=== PATIENT | female | born 1940 | race Caucasian/White ===

== ENCOUNTER 2016-12-26 03:04 | Inpatient (IN) | payer MEDICARE, OTHER ==
[~2016-12-26] VITALS: Ht 154.9 cm; Wt 73.9 kg
[2016-12-26] MEDS ORDERED: FURO20TA4 PO (03:24)
[2016-12-26] MEDS ORDERED: LISI40TA4 PO (03:24)
[2016-12-26] MEDS ORDERED: MESA1.2T PO (03:24)
[2016-12-26] MEDS ORDERED: ATEN50TA PO (03:24)
[2016-12-26] MEDS ORDERED: ALLO300T2 PO (03:24)
[2016-12-26] MEDS ORDERED: PARO40TA4 PO (03:24)
[2016-12-26] MEDS ORDERED: PANT40TA4 PO (03:24)
[2016-12-26] MEDS ORDERED: GABA-534 PO (03:24)
[2016-12-26] MEDS ORDERED: MONT10TA25 PO (03:24)
[2016-12-26] MEDS ORDERED: PRAV40TA3 PO (03:24)
[2016-12-26] MEDS ORDERED: MULT1TAB73 PO (03:24)
[2016-12-26] MEDS ORDERED: BUDE9TAB PO (03:24)
--- NOTE | 2016-12-26 03:28 | NUR ---
MEDICAL CLEARED BY DR LEGGETT
--- NOTE | 2016-12-26 03:46 | NUR ---
TRANSFERED TO [facility] VIA JUICE
[2016-12-26] MEDS ORDERED: TEMAZEPAM 7.5 MG CAPSULE PO PRN (04:00)
[2016-12-26] MEDS ORDERED: MAGNESIUM HYDROXIDE 30 ML LIQUID UDC PO PRN (04:00)
[2016-12-26] MEDS ORDERED: LORAZEPAM 0.5 MG TABLET PO PRN (04:00)
[2016-12-26] MEDS ORDERED: MAG HYDROX/AL HYDROX/SIMETH 30 ML LIQUID UDC PO PRN (04:00)
[2016-12-26 04:48] VITALS: BP 134/80
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
[2016-12-26 05:51] LABS: *BILIRUBIN,URIN NEGATIVE (NEGATIVE); *BLOOD, URINE NEGATIVE (NEGATIVE); *CLARITY,URINE CLEAR (CLEAR); *COLOR,URINE YELLOW (YELLOW); *KETONES,URINE NEGATIVE (NEGATIVE); *PROTEIN,URINE NEGATIVE (NEGATIVE); *UROBILINOGEN,URINE 0.2 E.U./dl (NORMAL); LEUKOCYTE ESTERASE ,URINE NEGATIVE (NEGATIVE); NITRITE, URINE NEGATIVE (NEGATIVE); PH,URINE 5.5 (5.0-8.0); UGLUCOSE NEGATIVE (NEGATIVE)
[2016-12-26 07:30] VITALS: BP 133/79
[2016-12-26] MEDS: ACETAMINOPHEN 325 MG TABLET PO PRN (09:39)
[2016-12-26 10:22] LABS: BACTERIA,URINE NONE SEEN /HPF (NONE SEEN); RBC,URINE 0-3 /HPF (0-3); SQUAMOUS EPITHELIAL CELL,UR FEW /HPF (NONE SEEN); WBC,URINE 0-3 /HPF (0-3)
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
[2016-12-26] MEDS: QUETIAPINE FUMARATE 25 MG TABLET PO SCH ×2 (11:14→16:36)
[2016-12-26] MEDS: PAROXETINE HCL 20 MG TABLET PO SCH (11:14)
--- NOTE | 2016-12-26 13:29 | NUR ---
Initial discharge instructions: The patient resides at her daughter's home [[address] [place], [place]; ]. Pt's daughter stated that she does not want the patient to return home upon discharge. She stated that she will be going out of town (to [facility] [place]) with her family and will not be home until 12/31/16. SW will speak with patient, family, and MD regarding most appropriate discharge plan. SS will form a safe and proper discharge plan.
[2016-12-26 15:42] VITALS: BP 110/51
[2016-12-26 16:02] LABS: BASOPHILS # (AUTO) 0.1 K/uL (0.0-8.0); BASOPHILS % (AUTO) 0.7 % (0.0-2.0); EOSINOPHILS % (AUTO) 0.1 % (0.0-7.0); HEMOGLOBIN 11.7 G/DL (12.0-16.0); LYMPHOCYTES # (AUTO) 0.5 K/UL (0.8-4.8); LYMPHOCYTES % (AUTO) 4.8 % (20.5-51.5); MEAN CORPUSCULAR HEMOGLOBIN 30.6 UUG (27.0-31.0); MEAN CORPUSCULAR HGB CONC 33 g/dL (32.0-37.0); MEAN CORPUSCULAR VOLUME 93.8 FL (81.0-99.0); MONOCYTES # (AUTO) 0.5 K/UL (0.1-1.30); MONOCYTES % (AUTO) 4.6 % (0.0-11.0); NEUTROPHILS # (AUTO) 9.4 K/UL (1.8-8.9); NEUTROPHILS % (AUTO) 89.8 % (38.5-71.5); PLATELET COUNT (AUTO) 220 K/UL (150-450); RED BLOOD CELL COUNT(AUTO) 3.83 MIL/UL (4.2-5.4); WHITE BLOOD COUNT (AUTO) 10.5 K/UL (4.0-11.2)
[2016-12-26 16:15] LABS: ALANINE AMINOTRANSFERASE 25 U/L (14-59); ALKALINE PHOSPHATASE 61 U/L (50-136); ASPARTATE AMINOTRANSFERASE 13 U/L (15-37); BILIRUBIN,TOTAL 0.3 mg/dL (0.2-1.0); CARBON DIOXIDE 27 mmol/L (21-32); CHLORIDE 109 mmol/L (98-107); CREATININE 1.6 mg/dL (0.6-1.3); GLUCOSE 148 mg/dL (74-106); MAGNESIUM 2.1 mg/dL (1.8-2.4); TOTAL PROTEIN, SERUM 5.5 g/dL (6.4-8.2); UREA NITROGEN, BLOOD 62 mg/dL (7-18)
[2016-12-26] MEDS: GABAPENTIN 300 MG CAPSULE PO SCH (16:35)
[2016-12-26] MEDS: FUROSEMIDE 20 MG TABLET PO SCH (16:36)
[2016-12-26] MEDS: PANTOPRAZOLE SODIUM 40 MG TABLET.DR PO SCH (16:36)
[2016-12-26] MEDS: MONTELUKAST SODIUM 10 MG TABLET PO SCH (20:14)
[2016-12-26] MEDS: ATORVASTATIN 10 MG TABLET PO SCH (20:14)
[2016-12-26] MEDS: ATENOLOL 50 MG TABLET PO SCH (20:15)
[2016-12-26 20:36] VITALS: BP 118/61
[2016-12-27 07:30] VITALS: BP 143/64
[2016-12-27] MEDS: GABAPENTIN 300 MG CAPSULE PO SCH ×3 (08:41→17:03)
[2016-12-27] MEDS: FUROSEMIDE 20 MG TABLET PO SCH ×2 (08:41→17:03)
[2016-12-27] MEDS: ALLOPURINOL 300 MG TABLET PO SCH (08:41)
[2016-12-27] MEDS: MULTIVITAMINS,THERAPEUTIC TABLET PO SCH (08:41)
[2016-12-27] MEDS: ATENOLOL 50 MG TABLET PO SCH ×2 (08:42→20:26)
[2016-12-27] MEDS: LISINOPRIL 20 MG TABLET PO SCH (08:42)
[2016-12-27] MEDS: PAROXETINE HCL 20 MG TABLET PO SCH (08:42)
[2016-12-27] MEDS: PANTOPRAZOLE SODIUM 40 MG TABLET.DR PO SCH ×2 (08:42→17:03)
[2016-12-27] MEDS: LIALDA 1.2 GM PO SCH (08:43)
[2016-12-27] MEDS: UCERIS 9 MG PO SCH (08:43)
[2016-12-27] MEDS: QUETIAPINE FUMARATE 25 MG TABLET PO SCH ×2 (08:43→17:03)
[2016-12-27] MEDS ORDERED: MESALAMINE 1.2 GM PO SCH (09:00)
[2016-12-27] MEDS ORDERED: Medication Not On Formulary EA (Budesonide (Uceris) 9 MG) PO SCH (09:00)
[2016-12-27] MEDS ORDERED: Medication Not On Formulary EA (Multivitamins (Multivitamin) 1 EACH) PO SCH (09:00)
[2016-12-27] MEDS ORDERED: Medication Not On Formulary EA (Lisinopril 40 MG) PO SCH (09:00)
[2016-12-27] MEDS: ACETAMINOPHEN 325 MG TABLET PO PRN (09:05)
[2016-12-27 16:00] VITALS: BP 101/50
[2016-12-27] MEDS: MONTELUKAST SODIUM 10 MG TABLET PO SCH (20:39)
[2016-12-27] MEDS: ATORVASTATIN 10 MG TABLET PO SCH (20:39)
[2016-12-27] MEDS: HEPARIN SODIUM,PORCINE 5,000 UNITS/ML VIAL SQ SCH (21:13)
[2016-12-27] MEDS ORDERED: HEPARIN SODIUM,PORCINE 5,000 UNITS/ML VIAL ONE (21:22)
[2016-12-27 21:30] VITALS: BP 91/68
[2016-12-28 07:30] VITALS: BP 111/65
[2016-12-28] MEDS: HEPARIN SODIUM,PORCINE 5,000 UNITS/ML VIAL SQ SCH ×2 (08:33→20:34)
[2016-12-28] MEDS: GABAPENTIN 300 MG CAPSULE PO SCH ×3 (08:33→16:42)
[2016-12-28] MEDS: ACETAMINOPHEN 325 MG TABLET PO PRN (08:33)
[2016-12-28] MEDS: QUETIAPINE FUMARATE 25 MG TABLET PO SCH ×2 (08:33→16:41)
[2016-12-28] MEDS: UCERIS 9 MG PO SCH (08:33)
[2016-12-28] MEDS: LIALDA 1.2 GM PO SCH (08:33)
[2016-12-28] MEDS: ATENOLOL 50 MG TABLET PO SCH ×2 (08:34→20:39)
[2016-12-28] MEDS: FUROSEMIDE 20 MG TABLET PO SCH ×2 (08:34→16:42)
[2016-12-28] MEDS: ALLOPURINOL 300 MG TABLET PO SCH (08:34)
[2016-12-28] MEDS: PANTOPRAZOLE SODIUM 40 MG TABLET.DR PO SCH ×2 (08:34→16:42)
[2016-12-28] MEDS: MULTIVITAMINS,THERAPEUTIC TABLET PO SCH (08:34)
[2016-12-28] MEDS: PAROXETINE HCL 20 MG TABLET PO SCH (08:34)
[2016-12-28] MEDS: LISINOPRIL 20 MG TABLET PO SCH (08:35)
[2016-12-28] MEDS: POLYVINYL ALCOHOL OPHT DROPS 15 ML BOTTLE EACHEYE PRN (09:34)
[2016-12-28 16:00] VITALS: BP 94/48
[2016-12-28 17:50] VITALS: BP 94/48
[2016-12-28 20:32] VITALS: BP 88/48
[2016-12-28] MEDS: ATORVASTATIN 10 MG TABLET PO SCH (20:33)
[2016-12-28] MEDS: MONTELUKAST SODIUM 10 MG TABLET PO SCH (20:33)
[2016-12-29 07:30] VITALS: BP 105/55
[2016-12-29] MEDS: HEPARIN SODIUM,PORCINE 5,000 UNITS/ML VIAL SQ SCH ×2 (08:28→20:19)
[2016-12-29] MEDS: GABAPENTIN 300 MG CAPSULE PO SCH ×3 (08:29→16:44)
[2016-12-29] MEDS: ALLOPURINOL 300 MG TABLET PO SCH (08:29)
[2016-12-29] MEDS: FUROSEMIDE 20 MG TABLET PO SCH (08:29)
[2016-12-29] MEDS: QUETIAPINE FUMARATE 25 MG TABLET PO SCH ×2 (08:29→16:44)
[2016-12-29] MEDS: PAROXETINE HCL 20 MG TABLET PO SCH (08:29)
[2016-12-29] MEDS: MULTIVITAMINS,THERAPEUTIC TABLET PO SCH (08:29)
[2016-12-29] MEDS: PANTOPRAZOLE SODIUM 40 MG TABLET.DR PO SCH ×2 (08:29→16:44)
[2016-12-29] MEDS: ACETAMINOPHEN 325 MG TABLET PO PRN (08:29)
[2016-12-29] MEDS: LISINOPRIL 20 MG TABLET PO SCH (08:30)
[2016-12-29] MEDS: LIALDA 1.2 GM PO SCH (08:30)
[2016-12-29] MEDS: UCERIS 9 MG PO SCH (08:30)
[2016-12-29] MEDS: POLYVINYL ALCOHOL OPHT DROPS 15 ML BOTTLE EACHEYE PRN (08:30)
[2016-12-29] MEDS: ATENOLOL 50 MG TABLET PO SCH ×2 (08:31→20:21)
[2016-12-29 08:44] LABS: CARBON DIOXIDE 28 mmol/L (21-32); CHLORIDE 106 mmol/L (98-107); CREATININE 1.5 mg/dL (0.6-1.3); GLUCOSE 80 mg/dL (74-106); POTASSIUM 4.1 mmol/L (3.5-5.1); UREA NITROGEN, BLOOD 65 mg/dL (7-18)
[2016-12-29 08:46] LABS: EOSINOPHILS # (AUTO) 0.1 K/uL (0.0-0.7); EOSINOPHILS % (AUTO) 0.6 % (0.0-7.0); HEMATOCRIT 36.4 % (37-47); HEMOGLOBIN 12.3 G/DL (12.0-16.0); LYMPHOCYTES # (AUTO) 1.1 K/UL (0.8-4.8); LYMPHOCYTES % (AUTO) 9.8 % (20.5-51.5); MEAN CORPUSCULAR HEMOGLOBIN 31.7 UUG (27.0-31.0); MEAN CORPUSCULAR HGB CONC 34 g/dL (32.0-37.0); MEAN CORPUSCULAR VOLUME 94.2 FL (81.0-99.0); MONOCYTES # (AUTO) 0.5 K/UL (0.1-1.30); MONOCYTES % (AUTO) 4.2 % (0.0-11.0); NEUTROPHILS # (AUTO) 9.9 K/UL (1.8-8.9); NEUTROPHILS % (AUTO) 85.4 % (38.5-71.5); PLATELET COUNT (AUTO) 170 K/UL (150-450); RED BLOOD CELL COUNT(AUTO) 3.86 MIL/UL (4.2-5.4); WHITE BLOOD COUNT (AUTO) 11.6 K/UL (4.0-11.2)
[2016-12-29 12:50] LABS: BAND % (MANUAL) 1 % (0-10); EOSINOPHILS % (MANUAL) 1 % (0-8); LYMPHOCYTES % (MANUAL) 11 % (20-40); METAMYELOCYTES % 1 % (0-1); MONOCYTES % (MANUAL) 8 % (2-10); NEUTROPHILS % (MANUAL) 78 % (42-75)
[2016-12-29 15:18] VITALS: BP 95/45
[2016-12-29 20:11] VITALS: BP 95/47
[2016-12-29] MEDS: MONTELUKAST SODIUM 10 MG TABLET PO SCH (20:20)
[2016-12-29] MEDS: ATORVASTATIN 10 MG TABLET PO SCH (20:20)
[2016-12-29 20:30] VITALS: BP 108/52
[2016-12-30 07:09] LABS: BASOPHILS % (AUTO) 0.2 % (0.0-2.0); EOSINOPHILS # (AUTO) 0.1 K/uL (0.0-0.7); EOSINOPHILS % (AUTO) 0.6 % (0.0-7.0); HEMATOCRIT 34.9 % (37-47); HEMOGLOBIN 11.8 G/DL (12.0-16.0); MEAN CORPUSCULAR HEMOGLOBIN 31.6 UUG (27.0-31.0); MEAN CORPUSCULAR HGB CONC 34 g/dL (32.0-37.0); MEAN CORPUSCULAR VOLUME 93.5 FL (81.0-99.0); MONOCYTES # (AUTO) 0.7 K/UL (0.1-1.30); NEUTROPHILS # (AUTO) 9.8 K/UL (1.8-8.9); NEUTROPHILS % (AUTO) 84.2 % (38.5-71.5); PLATELET COUNT (AUTO) 168 K/UL (150-450); RED BLOOD CELL COUNT(AUTO) 3.73 MIL/UL (4.2-5.4); WHITE BLOOD COUNT (AUTO) 11.6 K/UL (4.0-11.2)
[2016-12-30 07:30] VITALS: BP 117/62
[2016-12-30 07:49] LABS: ALANINE AMINOTRANSFERASE 22 U/L (14-59); ALKALINE PHOSPHATASE 73 U/L (50-136); ASPARTATE AMINOTRANSFERASE 12 U/L (15-37); BILIRUBIN,TOTAL 0.4 mg/dL (0.2-1.0); CARBON DIOXIDE 27 mmol/L (21-32); CHLORIDE 107 mmol/L (98-107); CREATINE KINASE, TOTAL 16 U/L (26-192); CREATININE 1.4 mg/dL (0.6-1.3); GLUCOSE 101 mg/dL (74-106); MAGNESIUM 2.1 mg/dL (1.8-2.4); PHOSPHOROUS 3.8 mg/dL (2.5-4.9); POTASSIUM 3.9 mmol/L (3.5-5.1); TOTAL PROTEIN, SERUM 5.9 g/dL (6.4-8.2); UREA NITROGEN, BLOOD 64 mg/dL (7-18)
[2016-12-30] MEDS: GABAPENTIN 300 MG CAPSULE PO SCH ×3 (08:34→16:02)
[2016-12-30] MEDS: PAROXETINE HCL 20 MG TABLET PO SCH (08:34)
[2016-12-30] MEDS: PANTOPRAZOLE SODIUM 40 MG TABLET.DR PO SCH ×2 (08:34→16:02)
[2016-12-30] MEDS: ALLOPURINOL 300 MG TABLET PO SCH (08:35)
[2016-12-30] MEDS: FUROSEMIDE 20 MG TABLET PO SCH (08:35)
[2016-12-30] MEDS: MULTIVITAMINS,THERAPEUTIC TABLET PO SCH (08:35)
[2016-12-30] MEDS: ATENOLOL 50 MG TABLET PO SCH ×2 (08:36→20:27)
[2016-12-30] MEDS: LISINOPRIL 10 MG TABLET PO SCH (08:36)
[2016-12-30] MEDS: QUETIAPINE FUMARATE 25 MG TABLET PO SCH ×2 (08:38→16:02)
[2016-12-30] MEDS: LIALDA 1.2 GM PO SCH (08:39)
[2016-12-30] MEDS: LIDOCAINE 5% PATCH TD SCH (08:39)
[2016-12-30] MEDS: POLYVINYL ALCOHOL OPHT DROPS 15 ML BOTTLE EACHEYE PRN (08:39)
[2016-12-30] MEDS: UCERIS 9 MG PO SCH (08:40)
[2016-12-30] MEDS: HEPARIN SODIUM,PORCINE 5,000 UNITS/ML VIAL SQ SCH ×2 (08:40→20:16)
[2016-12-30 10:10] LABS: *BILIRUBIN,URIN NEGATIVE (NEGATIVE); *BLOOD, URINE NEGATIVE (NEGATIVE); *CLARITY,URINE CLEAR (CLEAR); *COLOR,URINE YELLOW (YELLOW); *KETONES,URINE NEGATIVE (NEGATIVE); *PROTEIN,URINE NEGATIVE (NEGATIVE); *UROBILINOGEN,URINE 0.2 E.U./dl (NORMAL); LEUKOCYTE ESTERASE ,URINE TRACE (NEGATIVE); NITRITE, URINE NEGATIVE (NEGATIVE); UGLUCOSE NEGATIVE (NEGATIVE)
[2016-12-30 10:13] LABS: *CREATININE,URINE 25.7 mg/dL (30-125)
[2016-12-30 10:43] LABS: BACTERIA,URINE FEW /HPF (NONE SEEN); RBC,URINE NONE SEEN /HPF (0-3); SQUAMOUS EPITHELIAL CELL,UR MODERATE /HPF (NONE SEEN)
[2016-12-30] MEDS ORDERED: ALBUTEROL SULFATE 8 GM HFA.AER.AD IH PRN (12:45)
[2016-12-30] MEDS: ALBUTEROL SULFATE 2.5 MG/3 ML NEBU NEB PRN (14:44)
[2016-12-30 15:29] VITALS: BP 102/61
[2016-12-30] MEDS: ACETAMINOPHEN 325 MG TABLET PO PRN (15:31)
--- NOTE | 2016-12-30 17:27 | NUR ---
GPS.RN- URINALYSIS Dr Martin notified or urine results today. no orders at this time, continue to monitor
[2016-12-30] MEDS: MONTELUKAST SODIUM 10 MG TABLET PO SCH (20:23)
[2016-12-30] MEDS: ATORVASTATIN 10 MG TABLET PO SCH (20:23)
[2016-12-30 23:20] VITALS: BP 117/75
[2016-12-31 07:30] VITALS: BP 120/58
[2016-12-31] MEDS: GABAPENTIN 300 MG CAPSULE PO SCH ×3 (08:44→17:00)
[2016-12-31] MEDS: QUETIAPINE FUMARATE 25 MG TABLET PO SCH ×2 (08:44→17:00)
[2016-12-31] MEDS: PAROXETINE HCL 20 MG TABLET PO SCH (08:44)
[2016-12-31] MEDS: LIDOCAINE 5% PATCH TD SCH (08:44)
[2016-12-31] MEDS: LIALDA 1.2 GM PO SCH (08:44)
[2016-12-31] MEDS: UCERIS 9 MG PO SCH (08:44)
[2016-12-31] MEDS: MULTIVITAMINS,THERAPEUTIC TABLET PO SCH (08:44)
[2016-12-31] MEDS: PANTOPRAZOLE SODIUM 40 MG TABLET.DR PO SCH ×2 (08:44→17:00)
[2016-12-31] MEDS: ATENOLOL 50 MG TABLET PO SCH ×2 (08:45→20:27)
[2016-12-31] MEDS: LISINOPRIL 10 MG TABLET PO SCH (08:45)
[2016-12-31] MEDS: FUROSEMIDE 20 MG TABLET PO SCH (08:45)
[2016-12-31] MEDS: ALLOPURINOL 300 MG TABLET PO SCH (08:53)
[2016-12-31] MEDS: HEPARIN SODIUM,PORCINE 5,000 UNITS/ML VIAL SQ SCH (09:00)
[2016-12-31] MEDS: POLYVINYL ALCOHOL OPHT DROPS 15 ML BOTTLE EACHEYE PRN ×2 (09:07→17:13)
[2016-12-31] MEDS ORDERED: CEPHALEXIN MONOHYDRATE 500 MG CAPSULE PO SCH (10:00)
[2016-12-31] MEDS: ALBUTEROL SULFATE 2.5 MG/3 ML NEBU NEB PRN (10:12)
[2016-12-31] MEDS: CEPHALEXIN MONOHYDRATE 500 MG CAPSULE PO SCH ×2 (11:32→20:26)
[2016-12-31 15:08] LABS: A/G RATIO 1.4 (0.7-1.7); ALBUMIN 3.1 g/dL (2.9-4.4); ALPHA-1-GLOBULIN 0.2 g/dL (0.0-0.4); ALPHA-2-GLOBULIN 0.9 g/dL (0.4-1.0); BETA GLOBULIN 0.8 g/dL (0.7-1.3); GAMMA GLOBULIN 0.3 g/dL (0.4-1.8); GLOBULIN, TOTAL 2.2 g/dL (2.2-3.9); M-SPIKE Not Observed g/dL (Not Observed)
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
[2016-12-31 16:00] VITALS: BP 111/63
[2016-12-31] MEDS ORDERED: IPRATROPIUM BROMIDE 0.5 MG/2.5 ML NEBU NEB PRN (16:15)
[2016-12-31] MEDS: FLUTICASONE/VILANTEROL 1 EACH BLST.W.DEV INH SCH (18:29)
[2016-12-31] MEDS: ATORVASTATIN 10 MG TABLET PO SCH (20:26)
[2016-12-31] MEDS: MONTELUKAST SODIUM 10 MG TABLET PO SCH (20:26)
[2016-12-31 20:43] VITALS: BP 109/61
[2016-12-31] MEDS ORDERED: FLUTICASONE/SALMETEROL 250/50 INHALER INH SCH (21:00)
--- NOTE | 2016-12-31 22:00 | NUR ---
received to care, lying in bed, calm, and pleasant, but isolative, upon approach. compliant with medications and staff direction. as of 0, she appears to be asleep. no distress noted. will continue to monitor closely.
[2017-01-01] MEDS: LORAZEPAM 0.5 MG TABLET PO PRN (00:21)
--- NOTE | 2017-01-01 00:21 | NUR ---
pt kis now awake. PRN ativan was given for anxiety. will continue to monitor closely.
--- NOTE | 2017-01-01 06:00 | NUR ---
slept 8.5 hours. continues to sleep, but is easy to awaken. no distress noted. will continue to monitor closely.
[2017-01-01 07:30] VITALS: BP 117/63
[2017-01-01] MEDS: CEPHALEXIN MONOHYDRATE 500 MG CAPSULE PO SCH ×2 (08:40→20:27)
[2017-01-01] MEDS: QUETIAPINE FUMARATE 25 MG TABLET PO SCH ×2 (08:40→16:17)
[2017-01-01] MEDS: FLUTICASONE/VILANTEROL 1 EACH BLST.W.DEV INH SCH (08:41)
[2017-01-01] MEDS: FUROSEMIDE 20 MG TABLET PO SCH (08:41)
[2017-01-01] MEDS: ALLOPURINOL 300 MG TABLET PO SCH (08:41)
[2017-01-01] MEDS: PANTOPRAZOLE SODIUM 40 MG TABLET.DR PO SCH ×2 (08:41→16:17)
[2017-01-01] MEDS: LIALDA 1.2 GM PO SCH (08:41)
[2017-01-01] MEDS: MULTIVITAMINS,THERAPEUTIC TABLET PO SCH (08:41)
[2017-01-01] MEDS: GABAPENTIN 300 MG CAPSULE PO SCH ×3 (08:41→16:17)
[2017-01-01] MEDS: PAROXETINE HCL 20 MG TABLET PO SCH (08:41)
[2017-01-01] MEDS: ATENOLOL 50 MG TABLET PO SCH ×2 (08:42→20:28)
[2017-01-01] MEDS: LIDOCAINE 5% PATCH TD SCH (08:42)
[2017-01-01] MEDS: UCERIS 9 MG PO SCH (08:42)
[2017-01-01] MEDS: LISINOPRIL 10 MG TABLET PO SCH (08:42)
[2017-01-01] MEDS: POLYVINYL ALCOHOL OPHT DROPS 15 ML BOTTLE EACHEYE PRN ×2 (08:43→17:52)
[2017-01-01] MEDS: ALBUTEROL SULFATE 2.5 MG/3 ML NEBU NEB PRN (13:56)
[2017-01-01 15:59] VITALS: BP 104/74
--- NOTE | 2017-01-01 16:10 | NUR ---
Water Safety Instructor SW spoke with the patient regarding placement. The patient stated that she is open to short term SNF placement in the [facility]. The patient was referred to the following SNFs. SW awaiting response from all following facilities. 1.) [facility] 2.) [facility] 3.) [facility] 4.) [facility]
[2017-01-01 19:30] VITALS: BP 104/50
[2017-01-01] MEDS: MONTELUKAST SODIUM 10 MG TABLET PO SCH (20:27)
[2017-01-01] MEDS: ATORVASTATIN 10 MG TABLET PO SCH (20:27)
--- NOTE | 2017-01-02 06:00 | NUR ---
slept 9.5 hours. continues to sleep, but is easy to awaken. no distress noted. will continue to monitor closely.
[2017-01-02 07:30] VITALS: BP 118/68
[2017-01-02 07:44] LABS: BASOPHILS % (AUTO) 0.3 % (0.0-2.0); EOSINOPHILS # (AUTO) 0.1 K/uL (0.0-0.7); EOSINOPHILS % (AUTO) 1.2 % (0.0-7.0); HEMATOCRIT 34.2 % (37-47); HEMOGLOBIN 11.5 G/DL (12.0-16.0); LYMPHOCYTES # (AUTO) 0.8 K/UL (0.8-4.8); LYMPHOCYTES % (AUTO) 7.3 % (20.5-51.5); MEAN CORPUSCULAR HEMOGLOBIN 31.4 UUG (27.0-31.0); MEAN CORPUSCULAR HGB CONC 34 g/dL (32.0-37.0); MEAN CORPUSCULAR VOLUME 93.7 FL (81.0-99.0); MONOCYTES # (AUTO) 0.5 K/UL (0.1-1.30); MONOCYTES % (AUTO) 4.8 % (0.0-11.0); NEUTROPHILS # (AUTO) 9.9 K/UL (1.8-8.9); NEUTROPHILS % (AUTO) 86.4 % (38.5-71.5); PLATELET COUNT (AUTO) 180 K/UL (150-450); RED BLOOD CELL COUNT(AUTO) 3.65 MIL/UL (4.2-5.4); WHITE BLOOD COUNT (AUTO) 11.3 K/UL (4.0-11.2)
[2017-01-02 08:27] LABS: ALANINE AMINOTRANSFERASE 23 U/L (14-59); ALKALINE PHOSPHATASE 88 U/L (50-136); ASPARTATE AMINOTRANSFERASE 14 U/L (15-37); BILIRUBIN,TOTAL 0.3 mg/dL (0.2-1.0); CARBON DIOXIDE 28 mmol/L (21-32); CHLORIDE 109 mmol/L (98-107); CREATININE 1.3 mg/dL (0.6-1.3); GLUCOSE 103 mg/dL (74-106); MAGNESIUM 2.1 mg/dL (1.8-2.4); PHOSPHOROUS 3.3 mg/dL (2.5-4.9); POTASSIUM 4.4 mmol/L (3.5-5.1); TOTAL PROTEIN, SERUM 6.1 g/dL (6.4-8.2); UREA NITROGEN, BLOOD 54 mg/dL (7-18)
[2017-01-02] MEDS: LIDOCAINE 5% PATCH TD SCH (08:58)
[2017-01-02] MEDS: QUETIAPINE FUMARATE 25 MG TABLET PO SCH ×2 (08:58→17:05)
[2017-01-02] MEDS: ALLOPURINOL 300 MG TABLET PO SCH (08:58)
[2017-01-02] MEDS: MULTIVITAMINS,THERAPEUTIC TABLET PO SCH (08:59)
[2017-01-02] MEDS: PANTOPRAZOLE SODIUM 40 MG TABLET.DR PO SCH ×2 (08:59→17:05)
[2017-01-02] MEDS: PAROXETINE HCL 20 MG TABLET PO SCH (08:59)
[2017-01-02] MEDS: GABAPENTIN 300 MG CAPSULE PO SCH ×3 (08:59→17:04)
[2017-01-02] MEDS: ATENOLOL 50 MG TABLET PO SCH ×2 (09:00→20:21)
[2017-01-02] MEDS: FLUTICASONE/VILANTEROL 1 EACH BLST.W.DEV INH SCH (09:00)
[2017-01-02] MEDS: LISINOPRIL 10 MG TABLET PO SCH (09:00)
[2017-01-02] MEDS: FUROSEMIDE 20 MG TABLET PO SCH (09:00)
[2017-01-02] MEDS: UCERIS 9 MG PO SCH (09:03)
[2017-01-02] MEDS: LIALDA 1.2 GM PO SCH (09:03)
[2017-01-02] MEDS: CEPHALEXIN MONOHYDRATE 500 MG CAPSULE PO SCH ×2 (10:48→20:05)
[2017-01-02] MEDS: LORAZEPAM 0.5 MG TABLET PO PRN (13:04)
[2017-01-02] MEDS: ACETAMINOPHEN 325 MG TABLET PO PRN (14:14)
[2017-01-02 16:55] VITALS: BP 107/49
[2017-01-02] MEDS: POLYVINYL ALCOHOL OPHT DROPS 15 ML BOTTLE EACHEYE PRN (17:22)
[2017-01-02 19:48] VITALS: BP 90/49
[2017-01-02] MEDS: ATORVASTATIN 10 MG TABLET PO SCH (20:05)
[2017-01-02] MEDS: MONTELUKAST SODIUM 10 MG TABLET PO SCH (20:05)
--- NOTE | 2017-01-03 06:00 | NUR ---
slept 7.5 hours. continues to sleep, but is easy to awaken. no distress noted. will continue to monitor closely.
[2017-01-03 07:46] VITALS: BP 136/62
[2017-01-03] MEDS: MULTIVITAMINS,THERAPEUTIC TABLET PO SCH (08:12)
[2017-01-03] MEDS: LIDOCAINE 5% PATCH TD SCH (08:12)
[2017-01-03] MEDS: ALLOPURINOL 300 MG TABLET PO SCH (08:12)
[2017-01-03] MEDS: CEPHALEXIN MONOHYDRATE 500 MG CAPSULE PO SCH ×2 (08:12→20:29)
[2017-01-03] MEDS: QUETIAPINE FUMARATE 25 MG TABLET PO SCH ×2 (08:12→16:42)
[2017-01-03] MEDS: PAROXETINE HCL 20 MG TABLET PO SCH (08:12)
[2017-01-03] MEDS: ATENOLOL 50 MG TABLET PO SCH ×2 (08:13→20:29)
[2017-01-03] MEDS: GABAPENTIN 300 MG CAPSULE PO SCH ×3 (08:13→16:42)
[2017-01-03] MEDS: FUROSEMIDE 20 MG TABLET PO SCH (08:13)
[2017-01-03] MEDS: LISINOPRIL 10 MG TABLET PO SCH (08:13)
[2017-01-03] MEDS: PANTOPRAZOLE SODIUM 40 MG TABLET.DR PO SCH ×2 (08:13→16:42)
[2017-01-03] MEDS: FLUTICASONE/VILANTEROL 1 EACH BLST.W.DEV INH SCH (08:14)
[2017-01-03] MEDS: UCERIS 9 MG PO SCH (08:14)
[2017-01-03] MEDS: LIALDA 1.2 GM PO SCH (08:14)
[2017-01-03] MEDS: LORAZEPAM 0.5 MG TABLET PO PRN ×2 (08:22→16:47)
[2017-01-03 20:01] VITALS: BP 92/45
[2017-01-03] MEDS: ATORVASTATIN 10 MG TABLET PO SCH (20:28)
[2017-01-03] MEDS: MONTELUKAST SODIUM 10 MG TABLET PO SCH (20:28)
[2017-01-03] MEDS: ACETAMINOPHEN 325 MG TABLET PO PRN (20:28)
[2017-01-04 07:30] VITALS: BP 114/45
[2017-01-04] MEDS: LIALDA 1.2 GM PO SCH (08:35)
[2017-01-04] MEDS: FLUTICASONE/VILANTEROL 1 EACH BLST.W.DEV INH SCH (08:35)
[2017-01-04] MEDS: PANTOPRAZOLE SODIUM 40 MG TABLET.DR PO SCH ×2 (08:36→16:43)
[2017-01-04] MEDS: UCERIS 9 MG PO SCH (08:36)
[2017-01-04] MEDS: MULTIVITAMINS,THERAPEUTIC TABLET PO SCH (08:36)
[2017-01-04] MEDS: POLYVINYL ALCOHOL OPHT DROPS 15 ML BOTTLE EACHEYE PRN ×2 (08:36→16:43)
[2017-01-04] MEDS: PAROXETINE HCL 20 MG TABLET PO SCH (08:36)
[2017-01-04] MEDS: GABAPENTIN 300 MG CAPSULE PO SCH ×3 (08:36→16:43)
[2017-01-04] MEDS: QUETIAPINE FUMARATE 25 MG TABLET PO SCH ×2 (08:36→16:43)
[2017-01-04] MEDS: CEPHALEXIN MONOHYDRATE 500 MG CAPSULE PO SCH ×2 (08:36→20:30)
[2017-01-04] MEDS: LISINOPRIL 10 MG TABLET PO SCH (08:37)
[2017-01-04] MEDS: ALLOPURINOL 300 MG TABLET PO SCH (08:37)
[2017-01-04] MEDS: LIDOCAINE 5% PATCH TD SCH (08:37)
[2017-01-04] MEDS: FUROSEMIDE 20 MG TABLET PO SCH (08:37)
[2017-01-04] MEDS: ATENOLOL 50 MG TABLET PO SCH ×2 (08:38→20:51)
[2017-01-04 15:36] VITALS: BP 92/55
[2017-01-04] MEDS: ACETAMINOPHEN 325 MG TABLET PO PRN (16:43)
[2017-01-04 20:24] VITALS: BP 101/50
[2017-01-04] MEDS: ATORVASTATIN 10 MG TABLET PO SCH (20:30)
[2017-01-04] MEDS: MONTELUKAST SODIUM 10 MG TABLET PO SCH (20:31)
[2017-01-04 20:49] VITALS: BP 109/60
--- NOTE | 2017-01-04 20:49 | NUR ---
PATIENT RECEIVED IN BED AWAKE. PATIENT CALM AND PLEASANT UPON APPROACH. PATIENT COMPLAINT WITH MEDICATION. BLOOD PRESSURE 101/50 PATIENT STATED " I HAVEN'T HAD ANY WATER TODAY." PATIENT GIVEN A BOTTLE OF WATER AND RECHECKED BLOOD PRESSURE 109/60 HR 90 PATIENT COMPLAINT WITH MEDICATION HELD ATENOLOL DUE TO LOW BLOOD PRESSURE. PATIENT IN NO APPARENT DISTRESS, NO AGGRESSIVE OR COMBATIVE BEHAVIOR NOTED WILL CONTINUE TO MONITOR AND REDIRECT NEEDED. PATIENT DENIES PAIN AT THIS TIME, WILL CONTINUE TO MONITOR. BED IN LOWEST POSITION, BED LOCKED, AND BED ALARM ON WHILE IN BED.
[2017-01-05 07:30] VITALS: BP 108/65
[2017-01-05] MEDS: QUETIAPINE FUMARATE 25 MG TABLET PO SCH (08:25)
[2017-01-05] MEDS: MULTIVITAMINS,THERAPEUTIC TABLET PO SCH (08:25)
[2017-01-05] MEDS: FUROSEMIDE 20 MG TABLET PO SCH (08:25)
[2017-01-05] MEDS: PANTOPRAZOLE SODIUM 40 MG TABLET.DR PO SCH (08:25)
[2017-01-05] MEDS: GABAPENTIN 300 MG CAPSULE PO SCH ×2 (08:25→12:05)
[2017-01-05] MEDS: LIALDA 1.2 GM PO SCH (08:26)
[2017-01-05] MEDS: UCERIS 9 MG PO SCH (08:26)
[2017-01-05] MEDS: ALLOPURINOL 300 MG TABLET PO SCH (08:26)
[2017-01-05] MEDS: FLUTICASONE/VILANTEROL 1 EACH BLST.W.DEV INH SCH (08:26)
[2017-01-05] MEDS: PAROXETINE HCL 20 MG TABLET PO SCH (08:26)
[2017-01-05] MEDS: LIDOCAINE 5% PATCH TD SCH (08:26)
[2017-01-05] MEDS: CEPHALEXIN MONOHYDRATE 500 MG CAPSULE PO SCH (08:26)
[2017-01-05] MEDS: POLYVINYL ALCOHOL OPHT DROPS 15 ML BOTTLE EACHEYE PRN (08:27)
[2017-01-05 08:28] VITALS: BP 108/65
[2017-01-05] MEDS: ATENOLOL 50 MG TABLET PO SCH (08:28)
--- NOTE | 2017-01-05 11:35 | NUR ---
DC Note: The patient will be discharged today to [facility] [[address] [place] [address] ] via ambulance. BETHANY spoke with CJ in admissions at the facility who stated that they will be accepting the patient today. BETHANY spoke with the patient and she is aware and agreeable with the discharge plan. BETHANY spoke with the patient's daughter Sigrid Gomez and she is aware and agreeable with the discharge plan. The patient will follow-up at the facility with pool coordinator Dr. Rell Call and psychiatrist Dr. Nai Conti.
--- NOTE | 2017-01-05 14:30 | NUR ---
GPS: Nursing Notes: Discharge Notes: Patient awake and responding to her name, cooperative and pleasant with staff, compliant with her medications, following staff directions, denies any SI/HI, denies any AH/VH, denies any pain or discomfort at this time, denies any SOB, discharge to [facility] at [address] [place] [id number] , her daughter Nicol informed of discharge , report given to Lizeth, admission nurse, transported to facility via ambulance, took all her belongings with her, patient's own medication given to collar tacker in order to give to Lizeth - admission nurse, Dr. Conti (psychiatrist) and Dr. Call (client care manager) will continue with aftercare at the facility.
--- NOTE | 2017-01-08 16:31 | NUR ---
Sandwich Machine Operator BETHANY received a voicemail from [facility] BETHANY [place] cell: office: asking where the patient was discharged to. BETHANY called Shea back today and left her a voicemail informing her of the patient's location/DC.
== END 2017-01-05 14:30 | DRG 885 ==
LOC: ER 03:15 → GPS 03:36
PROVIDERS: ADMIT Psychiatry & Neurology Psychosomatic Medicine; ATTEND Contractor
DX: F33.3 Major depressive disorder, recurrent, severe with psychotic symptoms (principal); N18.9 Chronic kidney disease, unspecified; N17.0 Acute kidney failure with tubular necrosis; K51.90 Ulcerative colitis, unspecified, without complications; I13.0 Hypertensive heart and chronic kidney disease with heart failure and stage 1 through stage 4 chronic kidney disease, or unspecified chronic kidney disease; I42.9 Cardiomyopathy, unspecified; N39.0 Urinary tract infection, site not specified; E87.0 Hyperosmolality and hypernatremia; E44.0 Moderate protein-calorie malnutrition; N25.81 Secondary hyperparathyroidism of renal origin; T38.0X5A Adverse effect of glucocorticoids and synthetic analogues, initial encounter; Y92.009 Unspecified place in unspecified non-institutional (private) residence as the place of occurrence of the external cause; J44.9 Chronic obstructive pulmonary disease, unspecified; E78.5 Hyperlipidemia, unspecified; K21.9 Gastro-esophageal reflux disease without esophagitis; G89.29 Other chronic pain; M54.5 Low back pain; I50.9 Heart failure, unspecified; I08.3 Combined rheumatic disorders of mitral, aortic and tricuspid valves; Z79.899 Other long term (current) drug therapy; Z91.5 Personal history of self-harm; Z96.643 Presence of artificial hip joint, bilateral; M47.814 Spondylosis without myelopathy or radiculopathy, thoracic region; G62.9 Polyneuropathy, unspecified; Z68.30 Body mass index [BMI] 30.0-30.9, adult; M10.9 Gout, unspecified; D64.9 Anemia, unspecified; F41.9 Anxiety disorder, unspecified; F91.8 Other conduct disorders
CPT/HCPCS: 36415; 71010; 83735; 83970; 84100; 84155; 84165; 84300; 84443; 85025; 87086; 93307; 94640; 94664; 97161; J1644